=== PATIENT | male | born 1995 | race Caucasian/White ===

== ENCOUNTER 2017-03-11 16:53 | Emergency (ER) | payer OTHER ==
[~2017-03-11] VITALS: Ht 185.4 cm; Wt 85.0 kg
[~2017-03-11 16:53] MED LIST: LAMO150T3 PO; LEVE100020 PO; SERT100T PO
[2017-03-11 18:01] LABS: BLOOD UREA NITROGEN 11 mg/dL (7-18)
[2017-03-11 20:24] VITALS: BP 132/74
== END 2017-03-11 20:27 | disposition home or self-care (01) ==
LOC: ED 19:46
DX: R20.9 Unspecified disturbances of skin sensation (principal)
CPT/HCPCS: 36415; 70450; 72110; 80048; 82040; 85025; 93005; 99285

== ENCOUNTER → 2017-04-05 | Outpatient (CLI) | payer OTHER | END | disposition home or self-care (01) | LOC: CARD 08:41 | PROVIDERS: ATTEND Psychiatry & Neurology Neurology | DX: R56.9 Unspecified convulsions (principal) | CPT/HCPCS: 95819 ==

== ENCOUNTER 2017-04-30 10:47 | Emergency (ER) | payer OTHER ==
[~2017-04-30] VITALS: Ht 182.9 cm; Wt 82.0 kg
[2017-04-30] MEDS ORDERED: HYDROcodone/APAP 5/325 TABLET ONE (11:10)
[2017-04-30] MEDS ORDERED: LORazepam 2 MG/ML, 1ML ONE (11:10)
[2017-04-30] MEDS ORDERED: HYDROcodone/APAP 5/325 TABLET PO ONE (11:30)
[2017-04-30] MEDS ORDERED: SODIUM CHLORIDE FLUSH 10ML SYR IVF ONE (11:30)
[2017-04-30] MEDS ORDERED: LORazepam 2 MG/ML, 1ML IVPush ONE (11:30)
[2017-04-30 11:49] LABS: BLOOD UREA NITROGEN 12 mg/dL (7-18)
[2017-04-30 12:32] VITALS: BP 141/68
== END 2017-04-30 12:34 | disposition home or self-care (01) ==
LOC: ED 10:49
DX: R56.9 Unspecified convulsions (principal); F12.10 Cannabis abuse, uncomplicated
CPT/HCPCS: 36415; 80048; 82040; 85025; 96374; 99284; J2060

== ENCOUNTER 2017-07-03 20:07 | Emergency (ER) | payer OTHER ==
[~2017-07-03] VITALS: Ht 185.4 cm; Wt 90.6 kg
[2017-07-03] MEDS ORDERED: LORazepam 2 MG/ML, 1ML IVPush ONE (20:30)
[2017-07-03 21:01] LABS: HEMATOCRIT 45.5 % (39.2-51.8); HEMOGLOBIN 15.5 g/dL (13.7-18.0)
[2017-07-03 21:13] LABS: BLOOD UREA NITROGEN 10 mg/dL (7-18)
[2017-07-03 21:55] VITALS: BP 103/65
== END 2017-07-03 22:01 | disposition home or self-care (01) ==
LOC: ED 20:58
DX: R56.9 Unspecified convulsions (principal); R20.0 Anesthesia of skin; F12.10 Cannabis abuse, uncomplicated
CPT/HCPCS: 36415; 80048; 82040; 85025; 99284

== ENCOUNTER 2018-03-11 21:33 | Emergency (ER) | payer OTHER ==
[~2018-03-11] VITALS: Ht 185.4 cm; Wt 80.0 kg
[2018-03-11 23:36] LABS: BASOPHILS # (AUTO) 0.04 x10^3/uL (0-0.1); BASOPHILS % (AUTO) 1 % (0-1); EOSINOPHILS # (AUTO) 0.16 x10^3/uL (0-0.4); EOSINOPHILS % (AUTO) 2 % (1-7); LYMPHOCYTES % (AUTO) 31 % (22-44); MD NO; MEAN CORPUSCULAR HEMOGLOBIN 29.3 pg (27.5-34.5); MEAN CORPUSCULAR HGB CONC 33.9 g/dL (33.2-36.2); MEAN CORPUSCULAR VOLUME 86.6 fL (81-97); MEAN PLATELET VOLUME 7.8 fL (7.4-10.4); MONOCYTES # (AUTO) 0.52 x10^3/uL (0.2-0.8); MONOCYTES % (AUTO) 7 % (2-9); NEUTROPHILS # (AUTO) 4.39 x10^3/uL (1.8-6.8); NEUTROPHILS % (AUTO) 59 % (42-75); PLATELET COUNT 192 x10^3/uL (130-400); RED BLOOD COUNT 4.99 x10^6/uL (4.38-5.82)
[2018-03-11 23:47] LABS: ALANINE AMINOTRANSFERASE 26 U/L (12-78); ALBUMIN 4.1 g/dL (3.4-5.0); ANION GAP 9 mmol/L (5-15); CALCIUM 8.4 mg/dL (8.5-10.1); CHLORIDE 107 mmol/L (98-107); CREATININE 0.84 mg/dL (0.7-1.3)
[2018-03-11 23:50] LABS: ALKALINE PHOSPHATASE 71 U/L (45-117); BILIRUBIN,TOTAL 0.3 mg/dL (0.2-1.0); CREATINE KINASE, TOTAL 169 U/L (39-308); TOTAL PROTEIN 6.8 g/dL (6.4-8.2)
[2018-03-12 00:28] VITALS: BP 106/64
== END 2018-03-12 00:45 | disposition home or self-care (01) ==
LOC: ED 22:20
DX: R55 Syncope and collapse (principal); G40.909 Epilepsy, unspecified, not intractable, without status epilepticus; F41.9 Anxiety disorder, unspecified; M19.90 Unspecified osteoarthritis, unspecified site
CPT/HCPCS: 36415; 80053; 82550; 85025; 99284

== ENCOUNTER 2018-05-03 04:31 | Emergency (ER) | payer OTHER ==
[~2018-05-03] VITALS: Ht 185.4 cm; Wt 85.7 kg
[2018-05-03 04:32] VITALS: BP 149/82
[2018-05-03] MEDS ORDERED: KETOROLAC 30 MG/1 ML ONE (04:59)
[2018-05-03] MEDS ORDERED: KETOROLAC 30 MG/1 ML IM ONE (05:00)
== END 2018-05-03 05:50 | disposition home or self-care (01) ==
LOC: ED 05:44
DX: M72.2 Plantar fascial fibromatosis (principal); M79.671 Pain in right foot; G40.909 Epilepsy, unspecified, not intractable, without status epilepticus
CPT/HCPCS: 73630; 96372; 99284; J1885

== ENCOUNTER 2018-06-13 06:36 | Emergency (ER) | payer OTHER ==
[~2018-06-13] VITALS: Ht 185.4 cm; Wt 85.1 kg
[2018-06-13 06:40] VITALS: BP 127/70
[2018-06-13] MEDS ORDERED: ACETAMINOPHEN 500 MG TABLET PO ONE (07:30)
[2018-06-13] MEDS ORDERED: ACETAMINOPHEN 500 MG TABLET ONE (07:43)
== END 2018-06-13 08:15 | disposition home or self-care (01) ==
LOC: ED 07:50
DX: G40.909 Epilepsy, unspecified, not intractable, without status epilepticus (principal); F17.200 Nicotine dependence, unspecified, uncomplicated
CPT/HCPCS: 93005; 99283

== ENCOUNTER 2018-07-08 14:40 | Observation (INO) | payer OTHER ==
[~2018-07-08] VITALS: Ht 185.4 cm; Wt 87.1 kg
[2018-07-08 15:28] LABS: MICROSCOPIC AUTO
[2018-07-08 15:29] LABS: CULTURE INDICATED? NO
[2018-07-08] MEDS ORDERED: SODIUM CHLORIDE 0.9% 1,000 ML IV ONE (17:31)
[2018-07-08] MEDS ORDERED: LORazepam 2 MG/ML, 1ML ONE (17:43)
[2018-07-08] MEDS ORDERED: LORazepam 2 MG/ML, 1ML IVPush ONE (18:00)
[2018-07-08] MEDS ORDERED: LEVETIRACETAM 1,000 MG in SODIUM CHLORIDE 0.9% 100 ML IV ONE (18:00)
[2018-07-08 18:02] VITALS: BP 141/85
== END 2018-07-08 18:02 | disposition home or self-care (01) ==
LOC: ED 15:04 → EDIP 17:21
PROVIDERS: ADMIT Urology; ATTEND Urology
DX: N50.9 Disorder of male genital organs, unspecified (principal); N50.811 Right testicular pain; G40.909 Epilepsy, unspecified, not intractable, without status epilepticus; F17.200 Nicotine dependence, unspecified, uncomplicated
CPT/HCPCS: 36415; 76870; 81001; 82105; 83615; 84702; 96374; 99285; G0378; J2060; J7030

== ENCOUNTER → 2018-08-11 | Outpatient (CLI) | payer OTHER | END | disposition home or self-care (01) | LOC: CFH 16:35 | PROVIDERS: ATTEND Urology | DX: N43.3 Hydrocele, unspecified (principal); N50.89 Other specified disorders of the male genital organs | CPT/HCPCS: 76870; 93975 ==

== ENCOUNTER 2018-08-27 10:40 | Emergency (ER) | payer OTHER ==
[~2018-08-27] VITALS: Ht 185.4 cm; Wt 83.0 kg
[2018-08-27] MEDS ORDERED: SODIUM CHLORIDE FLUSH 10ML SYR IVF ONE (11:00)
[2018-08-27] MEDS ORDERED: LORazepam 2 MG/ML, 1ML IVPush ONE (11:00)
[2018-08-27] MEDS ORDERED: LORazepam 2 MG/ML, 1ML ONE (11:13)
[2018-08-27 11:19] LABS: BASOPHILS # (AUTO) 0.04 x10^3/uL (0-0.1); BASOPHILS % (AUTO) 1 % (0-1); EOSINOPHILS # (AUTO) 0.16 x10^3/uL (0-0.4); EOSINOPHILS % (AUTO) 2 % (1-7); LYMPHOCYTES # (AUTO) 1.22 x10^3/uL (1-3.4); LYMPHOCYTES % (AUTO) 17 % (22-44); MD NO; MEAN CORPUSCULAR HEMOGLOBIN 28.8 pg (27.5-34.5); MEAN CORPUSCULAR HGB CONC 32.9 g/dL (33.2-36.2); MEAN CORPUSCULAR VOLUME 87.6 fL (81-97); MEAN PLATELET VOLUME 8.3 fL (7.4-10.4); MONOCYTES # (AUTO) 0.45 x10^3/uL (0.2-0.8); MONOCYTES % (AUTO) 6 % (2-9); NEUTROPHILS # (AUTO) 5.25 x10^3/uL (1.8-6.8); NEUTROPHILS % (AUTO) 74 % (42-75); PLATELET COUNT 218 x10^3/uL (130-400); RED BLOOD COUNT 5.55 x10^6/uL (4.38-5.82); RED CELL DISTRIBUTION WIDTH 12.1 % (9.4-14.8)
[2018-08-27 11:31] LABS: ALANINE AMINOTRANSFERASE 36 U/L (12-78); ALBUMIN 4.3 g/dL (3.4-5.0); ANION GAP 8 mmol/L (5-15); CALCIUM 8.8 mg/dL (8.5-10.1); CHLORIDE 110 mmol/L (98-107); CREATININE 1.06 mg/dL (0.7-1.3)
[2018-08-27 11:34] LABS: ALKALINE PHOSPHATASE 70 U/L (45-117); BILIRUBIN,TOTAL 0.6 mg/dL (0.2-1.0); TOTAL PROTEIN 7.3 g/dL (6.4-8.2)
[2018-08-27 12:49] VITALS: BP 108/52
== END 2018-08-27 12:57 | disposition home or self-care (01) ==
LOC: ED 11:06
DX: G40.901 Epilepsy, unspecified, not intractable, with status epilepticus (principal); Z86.69 Personal history of other diseases of the nervous system and sense organs; Z87.448 Personal history of other diseases of urinary system; Z87.39 Personal history of other diseases of the musculoskeletal system and connective tissue
CPT/HCPCS: 36415; 80053; 80177; 85025; 93005; 96374; 99284; J2060

== ENCOUNTER 2019-02-03 23:50 | Emergency (ER) | payer OTHER ==
[~2019-02-03] VITALS: Ht 185.4 cm; Wt 85.5 kg
[2019-02-04] MEDS ORDERED: IBUPROFEN 600 MG TABLET ONE (00:05)
--- NOTE | 2019-02-04 00:07 | NUR ---
PT MEDICATED PER DEC. POC DISCUSSED. PT AWARE UA IS NEEDED. PT UNABLE TO PROVIDE SAMPLE AT THIS TIME. MD COATES'Duane WATER. PT TAKING PO FLUIDS AT THIS TIME. URINAL PROVIDED.
--- NOTE | 2019-02-04 00:26 | NUR ---
PT IN ULTRASOUND AT THIS TIME.
[2019-02-04] MEDS ORDERED: IBUPROFEN 600 MG TABLET PO ONE (00:30)
--- NOTE | 2019-02-04 00:49 | NUR ---
UA OBTAINED AND WALKED TO LAB. PT REQUESTING SANDWICH. PT INFORMED NO FOOD UNTIL RESULTS ARE BACK AND THE COFFEE CART IS CLOSED UNTIL MORNING. PT DENIES FURTHER NEEDS AT THIS TIME. CALL LIGHT ON LAP.
[2019-02-04 00:57] LABS: MICROSCOPIC AUTO
[2019-02-04 01:00] LABS: CULTURE INDICATED? NO
--- NOTE | 2019-02-04 01:54 | NUR ---
CONTINUE TO WAIT FOR US READ. POC DISCUSSED. PT DENIES FURTHER NEEDS AT THIS TIME.
[2019-02-04] MEDS ORDERED: ACETAMINOPHEN 325 MG TABLET ONE (02:18)
[2019-02-04 02:21] VITALS: BP 144/84
[2019-02-04] MEDS ORDERED: ACETAMINOPHEN 325 MG TABLET PO ONE (02:30)
== END 2019-02-04 02:24 | disposition home or self-care (01) ==
LOC: ED 23:59
DX: N50.811 Right testicular pain (principal); E83.42 Hypomagnesemia; N43.2 Other hydrocele
CPT/HCPCS: 76870; 81001; 99284

== ENCOUNTER 2019-12-12 04:15 | Emergency (ER) | payer SELFPAY ==
[~2019-12-12] VITALS: Ht 185.4 cm; Wt 90.0 kg
--- NOTE | 2019-12-12 04:40 | NUR ---
assessment made. PA at bedside.
[2019-12-12 05:17] LABS: BASOPHILS # (AUTO) 0.05 x10^3/uL (0-0.1); BASOPHILS % (AUTO) 1 % (0-1); EOSINOPHILS # (AUTO) 0.11 x10^3/uL (0-0.4); EOSINOPHILS % (AUTO) 1 % (1-7); LYMPHOCYTES % (AUTO) 26 % (22-44); MD NO; MEAN CORPUSCULAR HEMOGLOBIN 29.4 pg (27.5-34.5); MEAN CORPUSCULAR HGB CONC 33.5 g/dL (33.2-36.2); MEAN CORPUSCULAR VOLUME 87.6 fL (81-97); MEAN PLATELET VOLUME 8.2 fL (7.4-10.4); MONOCYTES # (AUTO) 0.58 x10^3/uL (0.2-0.8); MONOCYTES % (AUTO) 6 % (2-9); NEUTROPHILS # (AUTO) 6.57 x10^3/uL (1.8-6.8); NEUTROPHILS % (AUTO) 66 % (42-75); PLATELET COUNT 213 x10^3/uL (130-400); RED BLOOD COUNT 5.22 x10^6/uL (4.38-5.82); RED CELL DISTRIBUTION WIDTH 12.3 % (9.4-14.8)
[2019-12-12 05:23] LABS: ALBUMIN 4.4 g/dL (3.4-5.0); ANION GAP 10 mmol/L (5-15); CALCIUM 8.4 mg/dL (8.5-10.1); CHLORIDE 108 mmol/L (98-107); CREATININE 0.98 mg/dL (0.7-1.3)
[2019-12-12 05:25] LABS: SALICYLATE LEVEL < 1.7 mg/dL (2.8-20.0)
[2019-12-12] MEDS ORDERED: LAMO200T3 PO (05:36)
--- NOTE | 2019-12-12 06:03 | NUR ---
RESTING ON GURNEY, RESPIRATIONS EVEN AND UNLABORED, SAFETY PRECAUTION IN PLACE. SITTER AT BEDSIDE.
--- NOTE | 2019-12-12 06:56 | NUR ---
BEDSIDE REPORT TO MONSE HERNANDEZ.
--- NOTE | 2019-12-12 07:04 | NUR ---
Received bedside report from Woo Mccoy. All questions answered. Pt resting on left lateral side. Pt has unlabored respirations with even chest rise and fall. SI precautions in place with hopkins down. Sitter near doorway in direct line of sight for observation. No needs expressed. Breakfast tray ordered.
--- NOTE | 2019-12-12 08:20 | NUR ---
Breakfast tray provided for pt.
[2019-12-12 09:44] LABS: AMPHETAMINE SCREEN, URINE Negative (Negative); BARBITURATE SCREEN, URINE Negative (Negative); BENZODIAZEPINE SCREEN, URINE Negative (Negative); CANNABINOID SCREEN, URINE Positive (Negative); COCAINE SCREEN, URINE Negative (Negative); METHADONE SCREEN, URINE Negative (Negative); OPIATE SCREEN, URINE Negative (Negative)
[2019-12-12 10:38] VITALS: BP 116/69
[2019-12-12] MEDS ORDERED: Lamotrigine PO (10:40)
[2019-12-12] MEDS ORDERED: Levetiracetam PO (10:40)
--- NOTE | 2019-12-12 10:43 | NUR ---
Pt expresses SI and HI with out any specific plan, with pmh of [place], not within the last three months. Pt unable to provide names of people with intent for HI. Pt states, "I feel like that all the time (SI and HI)."
--- NOTE | 2019-12-12 10:51 | NUR ---
Obtain breathlyzer from pt. Pt blew 0.38. Addendum: 12/12/19 at 1143 by [facility] Breathalyzer 0.038.
--- NOTE | 2019-12-12 11:43 | NUR ---
Patient given discharge instructions and they have confirmed that they understand the instructions. Patient ambulatory with steady gait. Pt left with d/c paperwork and all personal belongings. NADN. No needs expressed.
== END 2019-12-12 11:45 | disposition home or self-care (01) ==
LOC: ED 09:21
DX: F32.9 Major depressive disorder, single episode, unspecified (principal); F10.220 Alcohol dependence with intoxication, uncomplicated; G40.909 Epilepsy, unspecified, not intractable, without status epilepticus; Y90.0 Blood alcohol level of less than 20 mg/100 ml
CPT/HCPCS: 36415; 80048; 80307; 82040; 85025; 99284

== ENCOUNTER 2019-12-16 14:16 | Emergency (ER) | payer OTHER ==
[~2019-12-16] VITALS: Ht 185.4 cm; Wt 93.2 kg
[~2019-12-16 14:16] MED LIST changes: +LAMO200T3 PO; +Lamotrigine PO; +Levetiracetam PO
--- NOTE | 2019-12-16 14:48 | NUR ---
pt resting in gurney, changed into gown, seizure pads on bed, suction in room, NAD, denies additional needs at this time, warm blankets for comfort, call light within reach, WCTM.
[2019-12-16] MEDS ORDERED: SODIUM CHLORIDE FLUSH 10ML SYR IVF ONE (15:00)
[2019-12-16 15:07] LABS: BASOPHILS # (AUTO) 0.01 x10^3/uL (0-0.1); BASOPHILS % (AUTO) 0 % (0-1); EOSINOPHILS % (AUTO) 1 % (1-7); LYMPHOCYTES # (AUTO) 0.94 x10^3/uL (1-3.4); LYMPHOCYTES % (AUTO) 12 % (22-44); MD NO; MEAN CORPUSCULAR HEMOGLOBIN 29.4 pg (27.5-34.5); MEAN CORPUSCULAR HGB CONC 33.8 g/dL (33.2-36.2); MEAN CORPUSCULAR VOLUME 87.1 fL (81-97); MEAN PLATELET VOLUME 8.4 fL (7.4-10.4); MONOCYTES # (AUTO) 0.44 x10^3/uL (0.2-0.8); MONOCYTES % (AUTO) 6 % (2-9); NEUTROPHILS # (AUTO) 6.29 x10^3/uL (1.8-6.8); NEUTROPHILS % (AUTO) 81 % (42-75); PLATELET COUNT 206 x10^3/uL (130-400); RED BLOOD COUNT 4.94 x10^6/uL (4.38-5.82); RED CELL DISTRIBUTION WIDTH 12.6 % (9.4-14.8)
[2019-12-16 15:08] LABS: ANION GAP 6 mmol/L (5-15); CALCIUM 8.4 mg/dL (8.5-10.1); CHLORIDE 111 mmol/L (98-107); SALICYLATE LEVEL < 1.7 mg/dL (2.8-20.0)
[2019-12-16 15:11] LABS: ALANINE AMINOTRANSFERASE 39 U/L (12-78); ALKALINE PHOSPHATASE 80 U/L (45-117); BILIRUBIN,TOTAL 0.4 mg/dL (0.2-1.0); CREATININE 1.06 mg/dL (0.7-1.3)
--- NOTE | 2019-12-16 15:42 | NUR ---
pt resting in gurney, denies additional needs at this time, NAD, call light within reach, even and unlabored respirations, WCTM
--- NOTE | 2019-12-16 16:04 | NUR ---
urine collected and walked to lab, pt resting in [facility] on the phone with friend, SABINE, call light within reach, WCTM
[2019-12-16 16:27] LABS: AMPHETAMINE SCREEN, URINE Negative (Negative); BARBITURATE SCREEN, URINE Negative (Negative); BENZODIAZEPINE SCREEN, URINE Negative (Negative); CANNABINOID SCREEN, URINE Positive (Negative); COCAINE SCREEN, URINE Negative (Negative); METHADONE SCREEN, URINE Negative (Negative); OPIATE SCREEN, URINE Negative (Negative)
[2019-12-16 17:22] VITALS: BP 125/81
== END 2019-12-16 17:43 | disposition home or self-care (01) ==
LOC: ED 17:37
DX: G40.309 Generalized idiopathic epilepsy and epileptic syndromes, not intractable, without status epilepticus (principal); R94.31 Abnormal electrocardiogram [ECG] [EKG]
CPT/HCPCS: 36415; 80053; 80175; 80177; 80307; 85025; 93005; 99285